=== PATIENT | female | born 1945 | race Caucasian/White ===

== ENCOUNTER 2022-10-21 13:06 | Outpatient (RCR) | payer MEDICARE, BC | END 2022-11-18 | disposition home or self-care (01) | LOC: OT | DX: M19.049 Primary osteoarthritis, unspecified hand (principal) ==

== ENCOUNTER → 2022-11-18 | Outpatient (CLI) | payer MEDICARE, BC | LOC: RAD 14:48 | DX: M79.605 Pain in left leg (principal) ==

== ENCOUNTER 2023-07-04 14:49 | Outpatient (RCR) | payer MEDICARE, BC ==
[~2023-07-04 14:49] MED LIST: APOAEQUORIN PO; ASPIRIN E.C. 8181 MG PO; CALCIUM + D3 E1 EACH PO; CLOBETASOL PROP25 ML TP; FERROUS SULFAT325 M4 PO; FLOMAX0.4 MG PO; FLUTICASONE P15.8 ML NS; LORATADINE10 MG PO; MOMETASONE FURO30 M1 TP; MULTIPLE VITAMI1 TA5 PO; NORVASC 10MG10 MG PO; OMEGA 3 FISH O1 EACH PO; OXYBUTYNIN CHLO15 MG PO; PAXLOVID CO-PA1 EACH PO; PREDNISOLONE AC10 ML OP; PREDNISONE20 M1 PO; SIMVASTATIN20 M1 PO; TEMAZEPAM30 M1 PO; TOPCARE OMEPRAZ20 MG PO; VALSARTAN320 MG PO
== END 2023-07-20 | disposition home or self-care (01) ==
LOC: SPEECH
DX: G51.0 Bell's palsy (principal)

== ENCOUNTER → 2023-07-20 | Outpatient (CLI) | payer MEDICARE, BC ==
[~2023-07-20] VITALS: Ht 147.3 cm; Wt 57.5 kg
[2023-07-20 13:26] VITALS: BP 152/90
== END ==
LOC: AMSURD 12:54
DX: M81.0 Age-related osteoporosis without current pathological fracture (principal)
CPT/HCPCS: J3111

== ENCOUNTER 2023-07-27 08:00 | Outpatient (RCR) | payer MEDICARE, BC | END 2023-08-20 | disposition home or self-care (01) | LOC: SPEECH | DX: G51.0 Bell's palsy (principal) ==

== ENCOUNTER → 2023-08-17 | Outpatient (CLI) | payer MEDICARE, BC ==
[~2023-08-17] VITALS: Ht 147.3 cm; Wt 57.5 kg
[2023-08-17 15:00] VITALS: BP 133/76
== END ==
LOC: AMSURD 14:37
DX: M81.0 Age-related osteoporosis without current pathological fracture (principal)
CPT/HCPCS: J3111

== ENCOUNTER → 2023-08-23 | Outpatient (CLI) | payer MEDICARE, BC | LOC: MAMMO 14:27 | DX: Z12.31 Encounter for screening mammogram for malignant neoplasm of breast (principal) ==

== ENCOUNTER → 2023-09-15 | Outpatient (CLI) | payer MEDICARE, BC ==
[~2023-09-15] VITALS: Ht 147.3 cm; Wt 57.5 kg
[2023-09-15 14:11] VITALS: BP 134/70
== END ==
LOC: AMSURD 13:15
DX: M81.0 Age-related osteoporosis without current pathological fracture (principal)
CPT/HCPCS: J3111

== ENCOUNTER → 2023-10-13 | Outpatient (CLI) | payer MEDICARE, BC ==
[~2023-10-13] VITALS: Ht 147.3 cm; Wt 57.5 kg
[~2023-10-13] MED LIST changes: +ROMOSOZUMAB AQQG 210 MG/2.34 ML SQ ONE
[2023-10-13 14:15] VITALS: BP 116/77
== END ==
LOC: AMSURD 14:01
DX: M81.0 Age-related osteoporosis without current pathological fracture (principal)
CPT/HCPCS: J3111

== ENCOUNTER → 2023-11-10 | Outpatient (CLI) | payer MEDICARE, BC ==
[~2023-11-10] VITALS: Ht 147.3 cm; Wt 57.5 kg
[~2023-11-10] MED LIST changes: +CALCIUM CARBON600 M3 PO; +CETIRIZINE HCL10 MG PO; +DETROL LA2 PO; +EPIPEN 2-PAK1 MG/ML IM; +EVENITY (2210 MG/2.3 SQ; +FAMOTIDINE20 MG PO; +FLAX SEED OIL1000 MG PO; +GLUCOSAMINE DA1 EACH PO; +GOOD SENSE SLEE25 M1 PO; +MELATONIN10 M2 PO; +NAPROXEN250 M2 PO; +NIACIN500 M7 PO; +SYNTHROID25 MCG PO; +TIZANIDINE2 MG PO; +VITAMIN D3125 MC3 PO
[2023-11-10 13:41] VITALS: BP 143/71
== END ==
LOC: AMSURD 13:28
DX: M81.0 Age-related osteoporosis without current pathological fracture (principal)
CPT/HCPCS: J3111

== ENCOUNTER → 2024-07-08 | Outpatient (CLI) | payer MEDICARE, BC ==
[~2024-07-08] MED LIST changes: -ROMOSOZUMAB AQQG 210 MG/2.34 ML SQ ONE
== END ==
LOC: RAD 16:41
DX: M16.0 Bilateral primary osteoarthritis of hip (principal); R10.31 Right lower quadrant pain; R10.32 Left lower quadrant pain

== ENCOUNTER → 2024-08-02 | Outpatient (CLI) | payer MEDICARE, BC | LOC: RAD 12:59 | DX: M16.12 Unilateral primary osteoarthritis, left hip (principal); M48.061 Spinal stenosis, lumbar region without neurogenic claudication; M54.16 Radiculopathy, lumbar region; Z98.1 Arthrodesis status ==

== ENCOUNTER → 2024-08-13 | Outpatient (CLI) | payer MEDICARE, BC | LOC: RAD 11:51 | DX: M19.071 Primary osteoarthritis, right ankle and foot (principal); M19.011 Primary osteoarthritis, right shoulder ==

== ENCOUNTER → 2024-08-30 | Outpatient (CLI) | payer MEDICARE, BC | LOC: RAD 13:17 | DX: M75.122 Complete rotator cuff tear or rupture of left shoulder, not specified as traumatic (principal); M67.814 Other specified disorders of tendon, left shoulder; M25.812 Other specified joint disorders, left shoulder ==

== ENCOUNTER → 2024-10-16 | Outpatient (CLI) | payer MEDICARE, BC | LOC: RAD 09:00 | DX: M25.512 Pain in left shoulder (principal) ==